=== PATIENT | male | born 1950 | race Caucasian/White ===

== ENCOUNTER 2017-03-03 13:19 | Outpatient (CLI) | payer OTHER, MEDICARE ==
[~2017-03-03 13:19] MED LIST: ASPIRIN ADULT L81 M1 PO; ATORVASTATIN CA10 MG PO; GLUCOSAMINE500 M1 PO; LOSARTAN POTASS25 MG PO; METFORMIN HCL500 MG PO; MULTIPLE VITAMIN PO; PIOGLITAZONE HC15 MG PO; VITAMIN D33000 UNIT PO
--- NOTE | 2017-03-03 15:43 | DIAGNOSTIC IMAGING REPORT ---
PROCEDURE: CT ABD/PELVIS WITH CONTRAST INDICATION: Mid and lower abdominal pain. TECHNIQUE: 125 of Isovue 300 were injected intravenously and axial images were obtained of the entire abdomen and pelvis with sagittal and coronal reformations. COMPARISON: None. FINDINGS: ABDOMEN: Gallbladder, liver, spleen, pancreas, kidneys, and aorta are normal. Abdominal bowel pattern is normal. Appendix is not clearly identified, but no evidence of inflammatory process. 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 PELVIS: Marked inflammatory changes of the mid sigmoid colons superimposed on marked sigmoid diverticulosis. No evidence of free air or free fluid. The rest of pelvic structures are normal. IMPRESSION: 1. Moderate to marked inflammatory changes of the mid sigmoid colon superimposed on marked diverticulosis. Findings are compatible with acute diverticulitis. 2. Otherwise negative CT abdomen and pelvis. 3. Findings discussed with Dr. Spangler. All CT scans at this facility use dose modulation, iterative reconstruction, and/or weight-based dosing when appropriate to reduce radiation dose to as low as reasonably achievable.
== END 2017-03-03 23:00 ==
LOC: CT SRH 13:19
DX: R10.9 Unspecified abdominal pain (principal); E11.9 Type 2 diabetes mellitus without complications
CPT/HCPCS: 90100; 92235; 95059